=== PATIENT | female | born 2000 | race African-American/Black ===

== ENCOUNTER 2021-09-04 21:03 | Emergency (ER) | payer OTHER ==
[2021-09-04] MEDS ORDERED: Ketorolac Tromethamine 30 MG/ML VIAL ONE (22:16)
== END 2021-09-04 22:45 | disposition home or self-care (01) ==
LOC: CSHERS 21:03
DX: S69.92XA Unspecified injury of left wrist, hand and finger(s), initial encounter (principal); E11.9 Type 2 diabetes mellitus without complications; Z79.4 Long term (current) use of insulin; Z79.84 Long term (current) use of oral hypoglycemic drugs; X58.XXXA Exposure to other specified factors, initial encounter
CPT/HCPCS: 96372; 99283; J1885

== ENCOUNTER 2022-02-15 15:21 | Emergency (ER) | payer BC, OTHER ==
[2022-02-15 16:47] LABS: Bilirubin Neg (Negative); Blood, Urine 10 (Negative); Clarity Sl. Cloudy (Clear); Glucose, Urine (Dipstick) >=1000 mg/dL (Negative); Ketone, Urine Negative (Negative); Leukocyte 100 (Negative); Nitrite Negative (Negative); Protein, Urine (Dipstick) 15 mg/dl (Neg-Trace); Urobilinogen Normal mg/dL (Less than 2)
[2022-02-15 16:55] LABS: Bacteria/HPF 1+ HPF (None Seen); RBC/HPF 0-3 HPF (0-3)
[2022-02-15 17:22] LABS: #Eosinphils 0.2 10x3/uL (0.0-0.5); #Monocytes 0.7 10x3/uL (0.0-1.1); #Neutrophils 6.3 10x3/uL (1.5-8.4); %Basophils 0.3 % (0.0-2.0); %Eosinophils 1.4 % (0.0-6.0); %Lymphocytes 35.5 % (18.0-47.0); %Monocytes 6.4 % (0.0-10.0); %Neutrophils 55.9 % (40.0-75.0); Hemoglobin 11.8 g/dL (12.0-15.5); Mean Corpuscular HGB CONC 32.2 g/dL (32.0-36.0); Mean Corpuscular Volume 80.8 fl (81.6-98.3); Mean Platelet Volume 10.2 fl (7.4-10.4); Platelet Count 228 10x3/uL (150-450); RBC Distribution Width 14.6 % (11.5-14.5); Red Blood Cell (RBC) Count 4.53 10x6/uL (3.90-5.03); White Blood Cell (WBC) Count 11.3 10x3/uL (3.5-10.5)
[2022-02-15 17:35] LABS: ALT (SGPT) 12 U/L (8-55); AST (SGOT) 15 U/L (5-34); Albumin 3.6 g/dL (3.5-5.0); Alkaline Phosphatase 44 U/L (40-100); Anion Gap 14 mmol/L (10-20); BUN (Urea Nitrogen) 11 mg/dL (7.0-18.7); Bilirubin, Total 0.2 mg/dL (0.2-1.2); Calc. Creatinine Clearance 0 mL/min (70-130); Calcium 9.4 mg/dL (7.8-10.44); Carbon Dioxide 20 mmol/L (22-29); Chloride 107 mmol/L (98-107); Estimated GFR 131; Globulin 3.3 g/dL (2.4-3.5); Glucose 165 mg/dL (70-105); Potassium 3.5 mmol/L (3.5-5.1); Protein, Total 6.9 g/dL (6.0-8.3); Sodium 137 mmol/L (136-145)
== END 2022-02-15 18:31 | disposition home or self-care (01) ==
LOC: CSHERS 15:21
DX: O23.42 Unspecified infection of urinary tract in pregnancy, second trimester (principal); O26.852 Spotting complicating pregnancy, second trimester; O24.912 Unspecified diabetes mellitus in pregnancy, second trimester; Z3A.18 18 weeks gestation of pregnancy
CPT/HCPCS: 80053; 81003; 81015; 85025; 86900; 86901; 87086

== ENCOUNTER 2022-05-14 20:08 | Emergency (ER) | payer OTHER | END 2022-05-14 22:40 | disposition home or self-care (01) | LOC: CSHERS 20:08 | DX: R25.2 Cramp and spasm (principal); E11.9 Type 2 diabetes mellitus without complications ==

== ENCOUNTER 2022-06-08 13:30 | Day surgery (SDC) | payer OTHER ==
[2022-06-08 14:18] VITALS: BMI 39.4
[2022-06-08] MEDS ORDERED: hydrALAZINE 20 MG/ML VIAL SLOW IVP PRN (14:44)
[2022-06-08 15:30] LABS: #Eosinphils 0.1 10x3/uL (0.0-0.5); #Monocytes 0.6 10x3/uL (0.0-1.1); #Neutrophils 4.2 10x3/uL (1.5-8.4); %Basophils 0.2 % (0.0-2.0); %Eosinophils 1.4 % (0.0-6.0); %Lymphocytes 40.2 % (18.0-47.0); %Monocytes 7.2 % (0.0-10.0); %Neutrophils 50.5 % (40.0-75.0); Hemoglobin 11.5 g/dL (12.0-15.5); Mean Corpuscular HGB CONC 32.9 g/dL (32.0-36.0); Mean Corpuscular Hemoglobin 26.7 pg (27.0-33.0); Mean Corpuscular Volume 81.2 fl (81.6-98.3); Mean Platelet Volume 11.7 fl (7.4-10.4); Platelet Count 177 10x3/uL (150-450); RBC Distribution Width 14.3 % (11.5-14.5); Red Blood Cell (RBC) Count 4.31 10x6/uL (3.90-5.03); White Blood Cell (WBC) Count 8.4 10x3/uL (3.5-10.5)
[2022-06-08 15:33] LABS: Creatinine, Urine 73.48 mg/dL (47-110)
[2022-06-08 15:37] LABS: ALT (SGPT) 27 U/L (8-55); AST (SGOT) 30 U/L (5-34); Alkaline Phosphatase 64 U/L (40-110); Anion Gap 13 mmol/L (10-20); BUN (Urea Nitrogen) 9 mg/dL (7.0-18.7); Bilirubin, Total 0.2 mg/dL (0.2-1.2); Calc. Creatinine Clearance 229 mL/min (70-130); Calcium 8.8 mg/dL (7.8-10.44); Carbon Dioxide 21 mmol/L (22-29); Chloride 108 mmol/L (98-107); Estimated GFR 131; Globulin 3.1 g/dL (2.4-3.5); Glucose 76 mg/dL (70-105); Potassium 3.5 mmol/L (3.5-5.1); Protein, Total 6.1 g/dL (6.0-8.3); Sodium 138 mmol/L (136-145)
[2022-06-08] MEDS ORDERED: Acetaminophen 500 MG TAB PO SCH (16:00)
== END 2022-06-08 16:03 | disposition home health service (06) ==
LOC: CSHERS 13:30 → CSHLD/OP 13:32
PROVIDERS: ATTEND Student in an Organized Health Care Education/Training Program
DX: O99.891 Other specified diseases and conditions complicating pregnancy (principal); R51.9 Headache, unspecified; O24.013 Pre-existing type 1 diabetes mellitus, in pregnancy, third trimester; E10.9 Type 1 diabetes mellitus without complications; Z79.82 Long term (current) use of aspirin; Z3A.34 34 weeks gestation of pregnancy
CPT/HCPCS: 80053; 82570; 84156; 85025; 99284

== ENCOUNTER 2022-06-12 04:57 | Inpatient (IN) | payer OTHER ==
[2022-06-12 05:15] VITALS: BMI 39.4
[2022-06-12] MEDS ORDERED: hydrALAZINE 20 MG/ML VIAL SLOW IVP PRN ×2 (06:15→09:46)
[2022-06-12 06:59] LABS: Creatinine, Urine 28.75 mg/dL (47-110)
[2022-06-12 07:40] LABS: #Eosinphils 0.2 10x3/uL (0.0-0.5); #Monocytes 0.8 10x3/uL (0.0-1.1); #Neutrophils 4.9 10x3/uL (1.5-8.4); %Basophils 0.4 % (0.0-2.0); %Eosinophils 1.6 % (0.0-6.0); %Lymphocytes 39.5 % (18.0-47.0); %Monocytes 7.9 % (0.0-10.0); %Neutrophils 50.1 % (40.0-75.0); ALT (SGPT) 28 U/L (8-55); AST (SGOT) 32 U/L (5-34); Albumin 3.2 g/dL (3.5-5.0); Alkaline Phosphatase 76 U/L (40-110); Anion Gap 13 mmol/L (10-20); BUN (Urea Nitrogen) 9 mg/dL (7.0-18.7); Bilirubin, Total 0.2 mg/dL (0.2-1.2); Calc. Creatinine Clearance 212 mL/min (70-130); Calcium 9.6 mg/dL (7.8-10.44); Carbon Dioxide 19 mmol/L (22-29); Chloride 109 mmol/L (98-107); Estimated GFR 128; Globulin 3.2 g/dL (2.4-3.5); Glucose 120 mg/dL (70-105); Hemoglobin 12.1 g/dL (12.0-15.5); Mean Corpuscular HGB CONC 32.9 g/dL (32.0-36.0); Mean Corpuscular Hemoglobin 26.7 pg (27.0-33.0); Mean Corpuscular Volume 81.1 fl (81.6-98.3); Platelet Count 181 10x3/uL (150-450); Potassium 3.6 mmol/L (3.5-5.1); Protein, Total 6.4 g/dL (6.0-8.3); RBC Distribution Width 14.7 % (11.5-14.5); Red Blood Cell (RBC) Count 4.54 10x6/uL (3.90-5.03); Sodium 137 mmol/L (136-145); White Blood Cell (WBC) Count 9.8 10x3/uL (3.5-10.5)
[2022-06-12] MEDS ORDERED: Ondansetron PF 4 MG/2 ML Vial IVP PRN (09:46)
[2022-06-12] MEDS ORDERED: HumaLOG 300 UNITS/3 ML VIAL SC PRN (09:46)
[2022-06-12] MEDS ORDERED: Promethazine HCl 25 MG/ML VIAL IM PRN (09:46)
[2022-06-12] MEDS ORDERED: Calcium Gluc 4.6 MEQ/10 ML (100 MG/ML) SLOW IVP PRN (09:46)
[2022-06-12] MEDS ORDERED: Lorazepam 2 MG/ML VIAL SLOW IVP PRN (09:46)
[2022-06-12] MEDS ORDERED: Acetaminophen 500 MG TAB PO PRN (09:46)
[2022-06-12] MEDS ORDERED: Bisacodyl 5 MG TAB PO PRN (09:50)
[2022-06-12] MEDS ORDERED: Calcium Carbonate 500 MG ChewTAB PO PRN (09:50)
[2022-06-12] MEDS ORDERED: NS w/ Oxytocin 30 units 500 ML IV SCH (10:00)
[2022-06-12] MEDS: HumaLOG 300 UNITS/3 ML VIAL SC SCH ×2 (10:46→17:18)
[2022-06-12 10:50] LABS: Hemoglobin 12.3 g/dL (12.0-15.5); Mean Corpuscular HGB CONC 32.1 g/dL (32.0-36.0); Mean Corpuscular Hemoglobin 26.2 pg (27.0-33.0); Mean Corpuscular Volume 81.5 fl (81.6-98.3); Mean Platelet Volume 11.7 fl (7.4-10.4); Platelet Count 174 10x3/uL (150-450); RBC Distribution Width 14.6 % (11.5-14.5); White Blood Cell (WBC) Count 8.8 10x3/uL (3.5-10.5)
[2022-06-12 11:19] LABS: HBSAg Index 0.18 S/CO (0-0.99); Hep B Surf Ag Non-Reactive S/CO (NonReactive)
[2022-06-12 11:20] LABS: Syphilis Antibody Nonreactive (Nonreactive); Syphilis Antibody Index 0.06 S/CO (<1.00 Non-Reactive)
[2022-06-12 11:23] LABS: Creatinine, Urine 45.15 mg/dL (47-110)
[2022-06-12 12:28] LABS: SARS-CoV-2 NAA Rapid Test Not Detected (NotDetected)
[2022-06-12] MEDS ORDERED: Lantus 1000 UNITS/10 ML VIAL SC SCH ×2 (21:00)
[2022-06-13] MEDS: HumaLOG 300 UNITS/3 ML VIAL SC SCH ×2 (08:48→12:56)
[2022-06-13] MEDS ORDERED: Prenatal Vitamin 1 TAB PO SCH (09:00)
[2022-06-13] MEDS ORDERED: Aspirin 81 mg Enteric Coated Tablet PO SCH (09:00)
[2022-06-13 12:10] VITALS: BP 127/68; TEMP 98
== END 2022-06-13 15:40 | disposition home or self-care (01) | DRG 832 ==
LOC: CSHLD/OP 04:57 → CSHLD 11:06 → CSHANTE 12:44
PROVIDERS: ADMIT Student in an Organized Health Care Education/Training Program; ATTEND Student in an Organized Health Care Education/Training Program
DX: O14.93 Unspecified pre-eclampsia, third trimester (principal); O24.013 Pre-existing type 1 diabetes mellitus, in pregnancy, third trimester; O99.113 Other diseases of the blood and blood-forming organs and certain disorders involving the immune mechanism complicating pregnancy, third trimester; E66.9 Obesity, unspecified; D56.3 Thalassemia minor; O99.213 Obesity complicating pregnancy, third trimester; O99.820 Streptococcus B carrier state complicating pregnancy; E10.9 Type 1 diabetes mellitus without complications; Z79.4 Long term (current) use of insulin; Z79.899 Other long term (current) drug therapy; Z3A.35 35 weeks gestation of pregnancy; Z20.822 Contact with and (suspected) exposure to COVID-19
CPT/HCPCS: 36416; 80053; 82570; 84156; 85025; 86780; 86850; 86900; 86901; 87340; J0360; J1815; U0002

== ENCOUNTER 2022-06-19 18:18 | Inpatient (IN) | payer OTHER ==
[2022-06-19] MEDS: Lactated Ringer's 1,000 ML IV SCH (18:45)
[2022-06-19] MEDS ORDERED: Lidocaine 1% (PF) 30 ML VIAL SC PRN (19:39)
[2022-06-19] MEDS ORDERED: Acetaminophen 500 MG TAB PO PRN (19:39)
[2022-06-19] MEDS ORDERED: Carboprost 250 MCG/ML AMP IM PRN (19:39)
[2022-06-19] MEDS ORDERED: Labetalol HCl 100 MG/20 ML VIAL SLOW IVP PRN ×3 (19:39)
[2022-06-19] MEDS ORDERED: Lorazepam 2 MG/ML VIAL SLOW IVP PRN (19:39)
[2022-06-19] MEDS ORDERED: Promethazine HCl 25 MG/ML VIAL IM PRN (19:39)
[2022-06-19] MEDS ORDERED: Tranexamic Acid 1,000 MG in Sodium Chloride 0.9% 250 ML 250 ML IVPB PRN (19:39)
[2022-06-19] MEDS ORDERED: Misoprostol 200 MCG TAB PR PRN (19:39)
[2022-06-19] MEDS ORDERED: Ondansetron PF 4 MG/2 ML Vial IVP PRN (19:39)
[2022-06-19] MEDS ORDERED: HYDROcodone/Acetaminophen 5/325 mg Tablet PO PRN (19:39)
[2022-06-19] MEDS ORDERED: hydrALAZINE 20 MG/ML VIAL SLOW IVP PRN ×2 (19:39)
[2022-06-19] MEDS ORDERED: Diphenoxylate HCl/Atropine Tablet PO PRN (19:39)
[2022-06-19] MEDS ORDERED: Ibuprofen 800 MG TAB PO PRN (19:39)
[2022-06-19] MEDS ORDERED: Butorphanol Tartrate 1 MG/ML VIAL SLOW IVP PRN (19:39)
[2022-06-19] MEDS ORDERED: Dextrose 5% in Water 1,000 ML IV PRN (19:39)
[2022-06-19] MEDS ORDERED: Calcium Gluc 4.6 MEQ/10 ML (100 MG/ML) SLOW IVP PRN (19:39)
[2022-06-19] MEDS ORDERED: Dextrose 50% Abboject 50 ML SYRINGE SLOW IVP PRN (19:39)
[2022-06-19] MEDS: hydrALAZINE 20 MG/ML VIAL ONE ×2 (19:44→19:49)
[2022-06-19] MEDS ORDERED: Magnesium Sulfate 20 gm/500 ml 20 GM/500 ML BAG ONE (19:53)
[2022-06-19] MEDS: Magnesium Sulfate 20 gm/500 ml 20 GM/500 ML BAG IVPB SCH (19:57)
[2022-06-19] MEDS ORDERED: Misoprostol 100 MCG TAB ONE (20:10)
[2022-06-19] MEDS: Misoprostol 100 MCG TAB VAG SCH ×2 (20:21→23:45)
[2022-06-19 20:31] LABS: Hemoglobin 11.8 g/dL (12.0-15.5); Mean Corpuscular HGB CONC 32.4 g/dL (32.0-36.0); Mean Corpuscular Volume 80.4 fl (81.6-98.3); Mean Platelet Volume 11.7 fl (7.4-10.4); Platelet Count 200 10x3/uL (150-450); RBC Distribution Width 14.5 % (11.5-14.5); Red Blood Cell (RBC) Count 4.53 10x6/uL (3.90-5.03); White Blood Cell (WBC) Count 9.4 10x3/uL (3.5-10.5)
[2022-06-19 20:46] LABS: ALT (SGPT) 33 U/L (8-55); AST (SGOT) 33 U/L (5-34); Albumin 3.2 g/dL (3.5-5.0); Alkaline Phosphatase 74 U/L (40-110); Anion Gap 13 mmol/L (10-20); BUN (Urea Nitrogen) 10 mg/dL (7.0-18.7); Bilirubin, Total 0.1 mg/dL (0.2-1.2); Calc. Creatinine Clearance 0 mL/min (70-130); Calcium 9.5 mg/dL (7.8-10.44); Carbon Dioxide 20 mmol/L (22-29); Chloride 110 mmol/L (98-107); Estimated GFR 127; Globulin 3.1 g/dL (2.4-3.5); Glucose 101 mg/dL (70-105); Potassium 3.5 mmol/L (3.5-5.1); Protein, Total 6.3 g/dL (6.0-8.3); Sodium 139 mmol/L (136-145)
[2022-06-19 21:03] LABS: HBSAg Index 0.17 S/CO (0-0.99); Hep B Surf Ag Non-Reactive S/CO (NonReactive)
[2022-06-19 21:04] LABS: Syphilis Antibody Nonreactive (Nonreactive); Syphilis Antibody Index 0.07 S/CO (<1.00 Non-Reactive)
[2022-06-19] MEDS ORDERED: Penicillin G Potassium 5 MILL.UNITS in Sodium Chloride 0.9% 100 ML IVPB SCH (21:45)
[2022-06-19 21:50] LABS: SARS-CoV-2 NAA Rapid Test Not Detected (NotDetected)
[2022-06-20] MEDS: Penicillin G 2.5 MILL.units 2.5 MILL.UNITS in Premix Bag 1 BAG IVPB SCH ×4 (02:54→19:52)
[2022-06-20] MEDS: Misoprostol 100 MCG TAB VAG SCH (03:04)
[2022-06-20] MEDS ORDERED: Penicillin G Potassium 5 MILL.UNITS VIAL ONE (11:13)
[2022-06-20] MEDS: Insulin Regular 300 UNITS/3 ML VIAL SC PRN ×2 (14:02→16:17)
[2022-06-20] MEDS: Magnesium Sulfate 20 gm/500 ml 20 GM/500 ML BAG IVPB SCH (15:03)
[2022-06-20] MEDS: NS w/ Oxytocin 30 units 500 ML IV SCH (15:04)
[2022-06-20] MEDS ORDERED: Fentanyl 2 mcg/Bup 0.1% Cadd 100 ML ONE (17:24)
[2022-06-20] MEDS ORDERED: Naloxone HCl 0.4 mg/ml Vial IVP PRN ×2 (18:03)
[2022-06-20] MEDS ORDERED: Promethazine HCl 25 MG/ML VIAL IM PRN (18:03)
[2022-06-20] MEDS ORDERED: ePHEDrine Sulfate 50 MG/10 ML VIAL SLOW IVP PRN (18:03)
[2022-06-20] MEDS ORDERED: Ondansetron PF 4 MG/2 ML Vial IVP PRN (18:03)
[2022-06-20] MEDS ORDERED: Acetaminophen 325 MG TAB PO PRN (18:03)
[2022-06-20] MEDS ORDERED: Moisturizing Cream (Eucerin) 113 GM JAR TOP PRN (18:03)
[2022-06-20] MEDS ORDERED: diphenhydrAMINE 50 MG/ML VIAL IVP PRN (18:03)
[2022-06-20] MEDS ORDERED: Lactated Ringer's 500 ML IV PRN (18:14)
[2022-06-20] MEDS ORDERED: Communication Order-Pharmacy FS SCH (18:15)
[2022-06-20] MEDS ORDERED: Fentanyl 2 mcg/Bupivacaine 0.1% Cassette 100 ML EPIDURAL SCH (18:15)
[2022-06-21] MEDS: Penicillin G 2.5 MILL.units 2.5 MILL.UNITS in Premix Bag 1 BAG IVPB SCH ×2 (01:13→20:56)
[2022-06-21] MEDS: Magnesium Sulfate 20 gm/500 ml 20 GM/500 ML BAG IVPB SCH ×2 (01:14→11:38)
[2022-06-21] MEDS: Insulin Regular 300 UNITS/3 ML VIAL SC PRN ×3 (04:19→17:22)
[2022-06-21] MEDS ORDERED: Misoprostol 200 MCG TAB ONE (05:20)
[2022-06-21] MEDS ORDERED: Carboprost 250 MCG/ML AMP ONE (05:20)
[2022-06-21] MEDS ORDERED: Diphenoxylate HCl/Atropine Tablet PO PRN (05:45)
[2022-06-21] MEDS ORDERED: Boostrix 0.5 ML (Tdap) VIAL (>/=7 yrs of age) IM ONE (06:16)
[2022-06-21] MEDS ORDERED: Milk Of Magnesia 30 ML UDCUP PO PRN (06:16)
[2022-06-21] MEDS ORDERED: hydrALAZINE 20 MG/ML VIAL SLOW IVP PRN (06:16)
[2022-06-21] MEDS ORDERED: Bisacodyl 10 MG SUPP PR PRN (06:16)
[2022-06-21] MEDS: NS w/ Oxytocin 30 units 500 ML IV SCH (06:23)
[2022-06-21] MEDS: Ferrous Sulfate 325 MG TAB PO SCH ×2 (07:36→20:53)
[2022-06-21] MEDS: Ibuprofen 800 MG TAB PO SCH ×3 (07:36→21:23)
[2022-06-21] MEDS: Lactated Ringer's 1,000 ML IV SCH ×2 (18:13→20:51)
[2022-06-21] MEDS: Docusate 100 MG CAP PO SCH ×2 (20:52→21:23)
[2022-06-21] MEDS: Misoprostol 100 MCG TAB VAG SCH ×2 (20:55→20:56)
[2022-06-21] MEDS ORDERED: HumaLOG 300 UNITS/3 ML VIAL SC SCH (21:00)
[2022-06-22] MEDS: Insulin Regular 300 UNITS/3 ML VIAL SC PRN (06:19)
[2022-06-22] MEDS: Ibuprofen 800 MG TAB PO SCH ×3 (06:20→21:21)
[2022-06-22 06:54] LABS: #Eosinphils 0.1 10x3/uL (0.0-0.5); #Monocytes 1.2 10x3/uL (0.0-1.1); %Basophils 0.2 % (0.0-2.0); %Lymphocytes 28.6 % (18.0-47.0); %Neutrophils 60.7 % (40.0-75.0); Hemoglobin 9.6 g/dL (12.0-15.5); Mean Corpuscular HGB CONC 32.3 g/dL (32.0-36.0); Mean Corpuscular Volume 80.5 fl (81.6-98.3); Mean Platelet Volume 11.4 fl (7.4-10.4); Platelet Count 179 10x3/uL (150-450); RBC Distribution Width 14.6 % (11.5-14.5); Red Blood Cell (RBC) Count 3.69 10x6/uL (3.90-5.03); White Blood Cell (WBC) Count 13.2 10x3/uL (3.5-10.5)
[2022-06-22] MEDS: Lactated Ringer's 1,000 ML IV SCH (07:41)
[2022-06-22] MEDS ORDERED: Dextrose 50% Abboject 50 ML SYRINGE SLOW IVP PRN (08:52)
[2022-06-22] MEDS ORDERED: hydrALAZINE 20 MG/ML VIAL SLOW IVP PRN (08:52)
[2022-06-22] MEDS ORDERED: diphenhydrAMINE 25 MG CAP PO PRN (08:52)
[2022-06-22] MEDS ORDERED: Boostrix 0.5 ML (Tdap) VIAL (>/=7 yrs of age) IM ONE (08:52)
[2022-06-22] MEDS ORDERED: Lanolin Ointment 7 GM TUBE TOP PRN (08:52)
[2022-06-22] MEDS ORDERED: HumaLOG 300 UNITS/3 ML VIAL SC PRN (08:52)
[2022-06-22] MEDS ORDERED: Dextrose 5% in Water 1,000 ML IV PRN (08:52)
[2022-06-22] MEDS ORDERED: HYDROcodone/Acetaminophen 5/325 mg Tablet PO PRN (08:52)
[2022-06-22] MEDS ORDERED: Ondansetron PF 4 MG/2 ML Vial IVP PRN (08:52)
[2022-06-22] MEDS ORDERED: Preparation H Ointment 28 GM TUBE PR PRN (08:52)
[2022-06-22] MEDS ORDERED: Milk Of Magnesia 30 ML UDCUP PO PRN (08:52)
[2022-06-22] MEDS ORDERED: Promethazine HCl 25 MG/ML VIAL IM PRN (08:52)
[2022-06-22] MEDS ORDERED: Bisacodyl 10 MG SUPP PR PRN (08:52)
[2022-06-22] MEDS ORDERED: Ferrous Sulfate 325 MG TAB PO SCH (09:00)
[2022-06-22] MEDS ORDERED: Lantus 1000 UNITS/10 ML VIAL SC SCH (09:00)
[2022-06-22] MEDS: Prenatal Vitamin 1 TAB PO SCH (09:26)
[2022-06-22] MEDS: Docusate 100 MG CAP PO SCH ×2 (09:27→21:22)
[2022-06-22] MEDS: Lantus 1000 UNITS/10 ML VIAL SC SCH (09:28)
[2022-06-22] MEDS: Ferrous Sulfate 325 MG TAB PO SCH (16:25)
[2022-06-23] MEDS: Ibuprofen 800 MG TAB PO SCH ×3 (05:43→21:18)
[2022-06-23] MEDS: Prenatal Vitamin 1 TAB PO SCH (08:19)
[2022-06-23] MEDS: Docusate 100 MG CAP PO SCH ×2 (08:19→21:18)
[2022-06-23] MEDS: Ferrous Sulfate 325 MG TAB PO SCH ×2 (08:19→16:52)
[2022-06-23] MEDS: Lantus 1000 UNITS/10 ML VIAL SC SCH (08:21)
[2022-06-23] MEDS ORDERED: Measles/Mumps/Rubella 10 MCG/0.5 ML VIAL SC ONE (09:15)
[2022-06-23] MEDS: Insulin Regular 300 UNITS/3 ML VIAL SC PRN (16:53)
[2022-06-23] MEDS ORDERED: NIFEdipine XL 30 MG TAB PO SCH (17:15)
[2022-06-23] MEDS ORDERED: cloNIDine 0.1 MG TAB PO SCH ×2 (18:00→21:00)
[2022-06-23] MEDS ORDERED: Lantus 1000 UNITS/10 ML VIAL SC SCH (21:00)
[2022-06-23] MEDS ORDERED: Furosemide 20 MG TAB PO SCH (21:00)
[2022-06-24] MEDS: Ibuprofen 800 MG TAB PO SCH ×2 (05:27→15:01)
[2022-06-24] MEDS: cloNIDine 0.1 MG TAB PO SCH ×2 (07:21→07:30)
[2022-06-24] MEDS: Ferrous Sulfate 325 MG TAB PO SCH (08:15)
[2022-06-24] MEDS: Prenatal Vitamin 1 TAB PO SCH (08:18)
[2022-06-24] MEDS: Docusate 100 MG CAP PO SCH (08:18)
[2022-06-24] MEDS ORDERED: NIFEdipine XL 30 MG TAB PO SCH (09:00)
[2022-06-24 15:04] VITALS: BP 121/80
[2022-06-24 16:23] VITALS: TEMP 99
== END 2022-06-24 18:05 | disposition home or self-care (01) | DRG 807 ==
LOC: CSHLD 18:18 → CSHPP 06-22 09:20
PROVIDERS: ADMIT Student in an Organized Health Care Education/Training Program; ATTEND Student in an Organized Health Care Education/Training Program
PROC: 10907ZC Drainage of Amniotic Fluid, Therapeutic from Products of Conception, Via Natural or Artificial Opening (ICD-10-PCS; 2022-06-20)
PROC: 10E0XZZ Delivery of Products of Conception, External Approach (ICD-10-PCS; principal; 2022-06-21)
PROC: 0UQMXZZ Repair Vulva, External Approach (ICD-10-PCS; 2022-06-21)
PROC: 0UQGXZZ Repair Vagina, External Approach (ICD-10-PCS; 2022-06-21)
DX: O14.14 Severe pre-eclampsia complicating childbirth (principal); Z37.0 Single live birth; O24.02 Pre-existing type 1 diabetes mellitus, in childbirth; O71.4 Obstetric high vaginal laceration alone; Z3A.36 36 weeks gestation of pregnancy; Z79.4 Long term (current) use of insulin; O69.1XX0 Labor and delivery complicated by cord around neck, with compression, not applicable or unspecified; O71.82 Other specified trauma to perineum and vulva; O62.2 Other uterine inertia; Z20.822 Contact with and (suspected) exposure to COVID-19; Z79.82 Long term (current) use of aspirin; Z79.899 Other long term (current) drug therapy; E10.9 Type 1 diabetes mellitus without complications; O99.824 Streptococcus B carrier state complicating childbirth; Z79.84 Long term (current) use of oral hypoglycemic drugs
CPT/HCPCS: 36415; 36416; 51702; 80053; 85025; 85027; 86780; 86850; 86900; 86901; 87340; 90707; J0360; J1815; J2405; J2540; J2590; J3475; J3490; J7120; U0002

== ENCOUNTER 2023-10-18 18:31 | Emergency (ER) | payer OTHER ==
[2023-10-18] MEDS ORDERED: Acetaminophen 500 MG TAB ONE (19:26)
== END 2023-10-18 20:00 | disposition home or self-care (01) ==
LOC: CSHERS 18:31
DX: S09.90XA Unspecified injury of head, initial encounter (principal); E11.9 Type 2 diabetes mellitus without complications; V89.2XXA Person injured in unspecified motor-vehicle accident, traffic, initial encounter; Z79.4 Long term (current) use of insulin
CPT/HCPCS: 99283; G0390

== ENCOUNTER 2023-11-28 17:01 | Emergency (ER) | payer OTHER ==
[2023-11-28] MEDS ORDERED: Ketorolac Tromethamine 30 MG (1 mL) VIAL ONE (20:13)
[2023-11-28 21:02] LABS: Influenza A by NAA Not Detected (NotDetected); Influenza B by NAA Not Detected (NotDetected); SARS-CoV-2 NAA Rapid Test DETECTED (NotDetected)
== END 2023-11-28 21:12 | disposition home or self-care (01) ==
LOC: CSHERS 17:01
DX: U07.1 COVID-19 (principal); E10.9 Type 1 diabetes mellitus without complications; Z79.4 Long term (current) use of insulin
CPT/HCPCS: 71046; 87081; 87430; 96372; J1885